=== PATIENT | female | born 1985 ===

== ENCOUNTER 2019-11-08 20:13 | Emergency (ER) | payer SELFPAY ==
[~2019-11-08] VITALS: Ht 162.6 cm; Wt 72.7 kg
[2019-11-08 20:44] VITALS: BP 112/66; Ht 162.6 cm; Wt 72.7 kg
== END 2019-11-08 22:14 | disposition home or self-care (01) ==
LOC: D.ER 20:13
DX: M25.571 Pain in right ankle and joints of right foot (principal); M25.572 Pain in left ankle and joints of left foot; M25.561 Pain in right knee